=== PATIENT | female | born 1975 | race Two or more races ===

== ENCOUNTER 2018-11-02 08:28 | Emergency (ER) | payer MEDICAID ==
[~2018-11-02] VITALS: Ht 162.6 cm; Wt 75.7 kg
[2018-11-02 08:45] VITALS: Ht 162.6 cm; Wt 75.7 kg
[2018-11-02 09:16] VITALS: BP 128/79
== END 2018-11-02 11:39 | disposition home or self-care (01) ==
LOC: ED 08:28
DX: S83.91XA Sprain of unspecified site of right knee, initial encounter (principal); X50.1XXA Overexertion from prolonged static or awkward postures, initial encounter; Y93.66 Activity, soccer; Y92.89 Other specified places as the place of occurrence of the external cause; Y99.8 Other external cause status
CPT/HCPCS: Q0092